=== PATIENT | female | born 1985 | race Caucasian/White ===

== ENCOUNTER 2022-01-03 16:27 | Emergency (ER) | payer BC, SELFPAY ==
--- NOTE | ~2022-01-03 | US_ITS ---
EXAMINATION: US ABDOMEN LIMITED CLINICAL INFORMATION: Epigastric pain with eating. COMPARISON: None TECHNIQUE: Real-time imaging of the gallbladder FINDINGS: The gallbladder is normal in size. There is a small 4 mm echogenic density adjacent to the gallbladder wall that does not move or shadow probably representing a small polyp. No definite gallstone is seen. The gallbladder wall is normal. There is no pericholecystic fluid. The common bile duct is normal in caliber measuring 0.3 cm. US/US abdomen limited IMPRESSION: Probable small gallbladder wall polyp. No definite gallstone seen.
[2022-01-03 16:37] VITALS: BP 142/90; PULSE 91; RESP 18; TEMP 36.8; O2SAT 98; BMI 25.0
[2022-01-03 19:42] VITALS: BP 150/82; PULSE 68; RESP 16; TEMP 36.9; O2SAT 98
[2022-01-03 20:00] LABS: MANUAL DIFF FLAG NO
[2022-01-03 20:04] LABS: Appearance Urine CLEAR; Color Urine YELLOW; Glucose Urine UA Negative (NEG); Leukocyte Esterase Urine Negative (Negative); Nitrite Urine Negative (NEG); Specific Gravity - Urine >= 1.030 (1.005-1.025); Urine Blood Moderate (2+) (NEG); Urine Ketones Trace MG/DL (NEG); Urine Protein Trace MG/DL (NEG-TRACE)
[2022-01-03 20:06] LABS: UPreg QC Valid YES; Urine Pregnancy NEGATIVE (NEGATIVE)
[2022-01-03 20:07] LABS: Basophils Percent Auto 0.5 % (0-2); Eosinophils Absolute Auto 0.3 X10*3/uL (0.0-0.4); Eosinophils Percent Auto 3.4 % (0-4); Hematocrit 41.2 % (37.0-47.0); Imm Gran Abs Auto 0.03 X10*3/uL (0.00-0.03); Imm Gran Pct Auto 0.4 % (0.0-0.4); Lymphocytes Absolute Auto 4.7 X10*3/uL (1.2-4.9); Lymphocytes Percent Auto 55.8 % (20-40); Mean Corpuscular Hemoglobin 30.6 pg (27.0-33.0); Mean Corpuscular Volume 90.2 fL (80.0-98.0); Mean Platelet Volume 8.4 fL (9.4-12.3); Monocytes Absolute Auto 0.6 X10*3/uL (0.1-1.2); Monocytes Percent Auto 6.9 % (2-11); Neutrophils Absolute Auto 2.8 x10*3/uL (2.0-8.3); Platelet Count 251 X10*3/uL (160-400); Red Blood Count 4.57 X10*6/uL (4.20-5.50); Red Cell Distribution Width 12.7 % (11.0-16.0); White Blood Count 8.4 X10*3/uL (4.8-10.8)
[2022-01-03 20:11] LABS: Mucus Urine 2+ /LPF; Squamous Epithelial Cell Urine 1+ /LPF
[2022-01-03 20:13] LABS: WBC Urine 0-2 /HPF (0-4)
[2022-01-03 20:22] LABS: Alanine Aminotransferase 16 U/L (0-31); Albumin Level 4.7 g/dL (3.5-5.0); Alkaline Phosphatase 56 U/L (39-117); Anion Gap 16 (12-20); Aspartate Amino Transferase 17 U/L (5-31); Bilirubin Direct 0.3 mg/dL (0.0-0.5); Bilirubin Total 0.9 mg/dL (0.0-1.0); Blood Urea Nitrogen 11 mg/dL (9-16); Calcium 9.2 mg/dL (8.4-10.2); Carbon Dioxide 24 mmol/L (22-29); Chloride 104 mmol/L (96-108); Creatinine Clr Calc Pharmacy 100.9; Estimated Glomerular Filt Rate > 60; Glucose Random 95 mg/dL (60-115); Lipase 77 U/L (8-78); Potassium 3.6 mmol/L (3.3-5.1); Sodium 140 mmol/L (135-145); Total Protein 7.3 g/dL (6.5-8.0)
[2022-01-03 22:26] VITALS: BP 129/80; PULSE 68; RESP 16; TEMP 36.4; O2SAT 98
--- NOTE | 2022-01-03 22:28 | ED_ITS ---
HPI - General Adult General Chief complaint: Abdominal Pain Stated complaint: Upper Gastric Pain through Back Time Seen by Provider: 01/03/22 22:05 Source: patient Limitations: no limitations History of Present Illness HPI narrative: This is a 36-year-old female with a history of chest pain that she has had off and on for 15 years, had worked up in the past, had upper endoscopy, also had ultrasound many years ago. The patient was told in the past she had a hiatal hernia. For last 5 days the patient has noted upper abdominal pain in the middle radiating through to her back, worse with eating. The patient has had associated nausea but no vomiting. She denies any fever. She denies any shortness of breath. She denies any constipation or diarrhea. She denies any UTI symptoms. She ate [place]o fries today which made the pain worse. She has tried antacids such as Tums without relief. Prior surgical history is by tubal ligation. She has had 1 prior . Related Data Previous Rx's Medication Instructions Recorded pantoprazole 40 mg tablet,delayed 40 mg PO DAILY #14 tabs 01/03/22 release (Protonix) Allergies Allergy/AdvReac Type Severity Reaction Status Date / Time No Known Allergies Allergy Verified 01/03/22 16:36 Review of Systems Review of Systems: Yes all other systems are reviewed and are negative Constitutional: Constitutional: Reports as per HPI and Denies fever(s) Eyes: Eyes: Reports as per HPI and Reports no additional eye complaints ENT: Reports system reviewed and no additional complaints, except as documented, Reports as per HPI, Denies nasal congestion, Denies nasal discharge and Denies sore throat Cardiovascular: Cardiovascular: Reports as per HPI, Denies chest pain and Denies dyspnea Respiratory: Respiratory: Reports as per HPI, Denies cough and Denies dyspnea Gastrointestinal: Gastrointestinal: Reports as per HPI, Reports abdominal pain, Denies diarrhea, Reports nausea and Denies vomiting Genitourinary: Genitourinary: Reports as per HPI, Denies hematuria, Denies urinary frequency and Denies dysuria Musculoskeletal: Musculoskeletal: Reports no additional musculoskeletal complaints and Denies numbness Integumentary/Breasts: Skin/Breast: Reports as per HPI and Denies rash Neurologic: Reports as per HPI, Denies focal weakness and Denies numbness Psychiatric: Psychiatric: Reports no additional psychiatric complaints and Reports as per HPI Endocrine: Endocrine: Reports no additional endocrine complaints and Reports as per HPI Hematologic/Lymphatic: Hematologic/Lymphatic: Reports no additional hematologic/lymphatic complaints, Reports as per HPI and Reports other (No peripheral edema) [facility] Social History Social History Advance Directives: No Physical Exam ED Vital Signs: Vital Signs - 24 hr 01/03/22 16:37 01/03/22 19:42 01/03/22 22:26 Temperature 98.2 F 98.4 F 97.6 F Pulse Rate 91 68 68 Respiratory Rate 18 16 16 Blood Pressure 142/90 H 150/82 H 129/80 Pulse Oximetry 98 98 98 Oxygen Delivery Method Room Air Room Air Room Air BMI result Body Mass Index 25.0 Const Other: Patient well appearing, no distress. No abdominal tenderness General: no acute distress Orientation/consciousness: patient oriented x3 HENMT Head: Yes normal to inspection General nose exam: Normal external nose present Mouth: moist mucous membranes Throat: Yes posterior oropharynx normal, Yes tonsils normal and Yes uvula midline Eyes Eyelids: Yes eyelids normal Conjunctivae: conjunctivae normal Pupils: Equal, round and reactive pupils present Neck Neck: Yes supple Resp Effort & Inspection: normal respiratory effort Auscultation: clear to auscultation bilaterally Cardio Rate: regular rate Rhythm: regular rhythm Heart sounds: S1 normal heart sound present, S2 normal heart sound present, no gallops, no murmurs and no rubs GI Inspection: No distended Palpation (GI): Soft to palpation and nontender Auscultation: normal bowel sounds Skin General skin exam: other (Warm and dry) Neuro General: patient oriented x3 and CN's II-XI intact bilaterally Cranial nerves: Yes Equal, round and reactive pupils present Extrem General: Yes no pedal edema Psych Affect: normal affect Attitude: cooperative Medical Decision Making [facility] Narrative Medical decision making narrative: Patient with a prior history of chest pain of unclear etiology, states she has had for years, has had prior workup. Patient has epigastric pain radiating to her back, worse with eating. Patient had a benign abdominal examination. Ultrasound of the right upper quadrant showed gallbladder polyp, no gallstones. LFTs are normal. White blood cell count is normal. Patient appears well clinically. Advised patient to follow-up as an outpatient, may need upper endoscopy. Will start the patient on Protonix. Patient was given Pepcid, Maalox, lidocaine in the ED with little relief. Lab Data Lab results reviewed: Yes I reviewed the patient's lab results. Result diagrams: 01/03/22 19:55 01/03/22 19:55 Labs: Lab Results 01/03/22 01/03/22 01/03/22 Range/Units 19:55 19:55 19:55 WBC 8.4 (4.8-10.8) X10*3/uL RBC 4.57 (4.20-5.50) X10*6/uL Hgb 14.0 (12.0-16.0) g/dl Hct 41.2 (37.0-47.0) % MCV 90.2 (80.0-98.0) fL MCH 30.6 (27.0-33.0) pg MCHC 34.0 (31.0-35.0) g/dl RDW 12.7 (11.0-16.0) % Plt Count 251 (160-400) X10*3/uL MPV 8.4 L (9.4-12.3) fL Immature Gran % (Auto) 0.4 (0.0-0.4) % Neut % (Auto) 33.0 L (45-73) % Lymph % (Auto) 55.8 H (20-40) % [place] % (Auto) 6.9 (2-11) % Eos % (Auto) 3.4 (0-4) % Baso % (Auto) 0.5 (0-2) % Lymph # (Auto) 4.7 (1.2-4.9) X10*3/uL [place] # (Auto) 0.6 (0.1-1.2) X10*3/uL Eos # (Auto) 0.3 (0.0-0.4) X10*3/uL Baso # (Auto) 0.0 (0.0-0.2) X10*3/uL Abs Immat Gran (auto) 0.03 (0.00-0.03) X10*3/uL Absolute Neuts (auto) 2.8 (2.0-8.3) x10*3/uL Absolute Nucleated RBC 0.000 (0.0-0.012) X10*3/uL Nucleated RBC % (auto) 0.0 (0.0-0.2) /100WBC Sodium 140 (135-145) mmol/L Potassium 3.6 (3.3-5.1) mmol/L Chloride 104 (96-108) mmol/L Carbon Dioxide 24 (22-29) mmol/L Anion Gap 16 (12-20) BUN 11 (9-16) mg/dL Creatinine 0.68 (0.5-1.4) mg/dL Estim Creat Clear Calc 100.9 Estimated GFR > 60 Random Glucose 95 (60-115) mg/dL Calcium 9.2 (8.4-10.2) mg/dL Total Bilirubin 0.9 (0.0-1.0) mg/dL Direct Bilirubin 0.3 (0.0-0.5) mg/dL AST 17 (5-31) U/L ALT 16 (0-31) U/L Alkaline Phosphatase 56 (39-117) U/L Total Protein 7.3 (6.5-8.0) g/dL Albumin 4.7 (3.5-5.0) g/dL Lipase 77 (8-78) U/L Urine Color YELLOW Urine Appearance CLEAR Urine pH 6.0 (5.0-8.0) Ur Specific [place] >= 1.030 H (1.005-1.025) Urine Protein Trace (NEG-TRACE) MG/DL Urine Glucose (UA) Negative (NEG) MG/DL Urine Ketones Trace (NEG) MG/DL Urine Blood Moderate (2+) H (NEG) Urine Nitrite Negative (NEG) Ur Leukocyte Esterase Negative (Negative) Urine RBC 5-9 H (0) /HPF Urine WBC 0-2 (0-4) /HPF Ur Squamous Epith Cells 1+ /LPF Urine Bacteria NONE /LPF Urine Mucus 2+ /LPF Urine Test (NEGATIVE) 01/03/22 Range/Units 19:55 WBC (4.8-10.8) X10*3/uL RBC (4.20-5.50) X10*6/uL Hgb (12.0-16.0) g/dl Hct (37.0-47.0) % MCV (80.0-98.0) fL MCH (27.0-33.0) pg MCHC (31.0-35.0) g/dl RDW (11.0-16.0) % Plt Count (160-400) X10*3/uL MPV (9.4-12.3) fL Immature Gran % (Auto) (0.0-0.4) % Neut % (Auto) (45-73) % Lymph % (Auto) (20-40) % [place] % (Auto) (2-11) % Eos % (Auto) (0-4) % Baso % (Auto) (0-2) % Lymph # (Auto) (1.2-4.9) X10*3/uL [place] # (Auto) (0.1-1.2) X10*3/uL Eos # (Auto) (0.0-0.4) X10*3/uL Baso # (Auto) (0.0-0.2) X10*3/uL Abs Immat Gran (auto) (0.00-0.03) X10*3/uL Absolute Neuts (auto) (2.0-8.3) x10*3/uL Absolute Nucleated RBC (0.0-0.012) X10*3/uL Nucleated RBC % (auto) (0.0-0.2) /100WBC Sodium (135-145) mmol/L Potassium (3.3-5.1) mmol/L Chloride (96-108) mmol/L Carbon Dioxide (22-29) mmol/L Anion Gap (12-20) BUN (9-16) mg/dL Creatinine (0.5-1.4) mg/dL Estim Creat Clear Calc Estimated GFR Random Glucose (60-115) mg/dL Calcium (8.4-10.2) mg/dL Total Bilirubin (0.0-1.0) mg/dL Direct Bilirubin (0.0-0.5) mg/dL AST (5-31) U/L ALT (0-31) U/L Alkaline Phosphatase (39-117) U/L Total Protein (6.5-8.0) g/dL Albumin (3.5-5.0) g/dL Lipase (8-78) U/L Urine Color Urine Appearance Urine pH (5.0-8.0) Ur Specific [place] (1.005-1.025) Urine Protein (NEG-TRACE) MG/DL Urine Glucose (UA) (NEG) MG/DL Urine Ketones (NEG) MG/DL Urine Blood (NEG) Urine Nitrite (NEG) Ur Leukocyte Esterase (Negative) Urine RBC (0) /HPF Urine WBC (0-4) /HPF Ur Squamous Epith Cells /LPF Urine Bacteria /LPF Urine Mucus /LPF Urine Test NEGATIVE (NEGATIVE) Imaging Data Ultrasound right upper quadrant: Radiologist's impression: FINDINGS: The gallbladder is normal in size. There is a small 4 mm echogenic density adjacent to the gallbladder wall that does not move or shadow probably representing a small polyp. No definite gallstone is seen. The gallbladder wall is normal. There is no pericholecystic fluid. The common bile duct is normal in caliber measuring 0.3 cm. US/US abdomen limited IMPRESSION: Probable small gallbladder wall polyp. No definite gallstone seen. Discharge Plan Discharge Clinical Impression: Acute epigastric pain Patient Disposition: Home, Self-Care Instructions: Epigastric Pain (ED) Additional Instructions: Follow-up with primary care physician, as you may need referral to [facility] for upper endoscopy to evaluate your esophagus and stomach and proximal small intestine. Start the Protonix as prescribed. Return for any new or worsened symptoms strict Prescriptions: New pantoprazole [Protonix] 40 mg tablet,delayed release (DR/EC) 40 mg PO DAILY Qty: 14 0RF Interventions: ED Discharge Assessment Last Done: 01/04/22 00:00 Discharge Date/Time: 01/04/22 00:00
[2022-01-03] MEDS: Famotidine 20 MG TABLET PO (22:36)
[2022-01-03] MEDS: Lidocaine HCl Viscous 2 % 15 ML SOLUTION MUCOUS MEM (22:36)
[2022-01-03] MEDS: Magnesium Hydrox/Alum Hydrox 30 ML ORAL.SUSP PO (22:36)
== END 2022-01-04 | disposition home or self-care (01) ==
PROVIDERS: Emergency Provider Emergency Medicine
DX: R10.13 Epigastric pain (principal)
CPT/HCPCS: 36415; 76705; 80053; 81001; 81003; 81025; 82248; 83690; 85025; 99283; 99284